=== PATIENT | female | born 1990 | race Caucasian/White ===

== ENCOUNTER 2016-10-25 17:02 | Emergency (ER) | payer OTHER ==
--- NOTE | 2016-10-25 20:23 | ED ORDER SUMMARY ---
..... Patient: IVAN CORTEZ OrderSheet [facility] VisitID: [id number] [address] [place], [place] [id number] 26y, F Registration Date/Time: 10/25/2016 ORDER SHEET Weight: 56.2 kg (stated) Allergies: No Known Drug Allergy GENERAL ORDERS: Chest 2V Urgent (17:57 10/25/2016 EKoroleva P.A.-C) (Ack 18:06 RKaruga) (18:33 SReitz R.N.) CBC w Diff Urgent (17:57 10/25/2016 EKoroleva P.A.-C) (Ack 18:06 RKaruga) (18:33 SReitz R.N.) CMP Urgent (17:57 10/25/2016 EKoroleva P.A.-C) (Ack 18:06 RKaruga) (18:33 SReitz R.N.) UA-Culture if indicated Urgent (17:57 10/25/2016 EKoroleva P.A.-C) (Ack 18:06 RKaruga) (18:33 SReitz R.N.) Urine Urgent (17:57 10/25/2016 EKoroleva P.A.-C) (Ack 18:06 RKaruga) (18:33 SReitz R.N.) Urine Drug Screen Urgent (17:57 10/25/2016 EKoroleva P.A.-C) (Ack 18:06 RKaruga) (18:33 SReitz R.N.) EKG - ER Stat (17:57 10/25/2016 EKoroleva P.A.-C) (17:57 SReitz R.N.) US Abdomen Limited (No) Urgent (18:25 10/25/2016 EKoroleva P.A.-C) (Ack 18:31 RKaruga) (20:14 JDeElena R.N.) Lipase Urgent (18:25 10/25/2016 EKoroleva P.A.-C) (Ack 18:31 RKaruga) (18:33 SReitz R.N.) Serum Quantitative Urgent (18:25 10/25/2016 EKoroleva P.A.-C) (Ack 18:31 Cody) (18:35 Jeremy R.N.) MEDICATION ORDERS: Augmentin PO 875 mg (NOW) (20:08 10/25/2016 EKoroleva P.A.-C) (Cancelled: Other20:08 EKoroleva P.A.-C) IV FLUIDS: IV NS : initial bolus 1000 mL (1000 mL/hr), then 1000 mL/hr for X1 (NOW); Alonzo (17:57 10/25/2016 EKoroleva P.A.-C) (18:00 Jeremy R.N.) Rocephin IV 2 gm/50mL (NOW) (20:07 10/25/2016 EKoroleva P.A.-C) (Ack 20:07 Louis R.N.) (20:12 Louis R.N.) ORDER SHEET NOTES: [Electronically signed by Chris Cortez R.N. (20:52 10/25/2016)] [Electronically signed by Gabi Lowery P.A.-C (21:29 10/25/2016)] [Electronically locked/signed by Chris Cortez R.N. (20:52 10/25/2016)]
--- NOTE | 2016-10-25 20:23 | ED NURSING NOTES ---
Clinical Report - [facility] [address] [place] [address] 10/25/2016 17:03 Patient: ESTELITA CORTEZ TRIAGE Triage time 17:17. Acuity: LEVEL 3. Chief Complaint: DIZZINESS and (syncope). Alert. No acute distress. SEPSIS SCREEN: Sepsis Screen. Negative (no infection suspected/documented). ODESSA COMA SCORE: [place] Coma Scale: 15- eyes open spontaneously (4); best verbal response- oriented x 4 (5); best motor response- obeys commands (6). --17:27 Preeti Mesa R.N. 17:17 10/25/16. BP: 118/74. HR: 80. RR: 16. O2 saturation: 100%. Temp: 98.4 F. Pain level now 0/10. --17:27 Preeti Mesa R.N. 17:17. ( BP lyin/74 HR 80, BP standin/80 HR 82). --17:33 Preeti Mesa R.N. Weight: 56.2 kg stated. Height/Length: 63 inches Per Patient. BMI: 22. --17:19 Preeti Mesa R.N. Medications Control Pills. --17:22 Preeti Mesa R.N. Allergies No Known Drug Allergy. --17:22 Preeti Mesa R.N. History Arrived by private vehicle. Historian: patient. Accompanied by friend. Primary physician (Luly). This started 1 week ago started feeling dizzy then 3 days ago had a "blackout" episode. 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 PAST MEDICAL HX: Immunizations: up-to-date. Last normal menstrual period- Sep 26 2016. SOCIAL HX: Light tobacco smoker (cigarette)- less than 1/2 a pack per day. Occasional alcohol use. History of IV drug use: methamphetamines. (lasted used x1 month ago). ABUSE ASSESSMENT: Abuse assessment: The patient was asked "Do you feel safe in your home?" and "Has anyone hurt you or threatened to hurt you?". No report of abuse. NUTRITIONAL RISK ASSESSMENT: The nutritional risk assessment revealed no deficiencies. FUNCTIONAL ASSESSMENT: Functional assessment: no impairments noted. LEARNING NEEDS ASSESSMENT: The learning needs assessment revealed no barriers. --17:27 Preeti Mesa R.N. PROBLEMS: Carpal Tunnel Syndrome. Hep c. Substance Abuse. Neck Injury. --17:23 Preeti Mesa R.N. Interventions ID band on patient. Ambulatory. --17:27 Preeti Mesa R.N. PHYSICAL ASSESSMENT Ambulatory to room. GENERAL / NEURO / PSYCH: Oriented X 4. Appears in no acute distress. Alert. Speech within normal limits. RESPIRATORY: Respirations not labored. CVS: Capillary refill less than 2 seconds. SKIN: Skin is warm and dry. --17:27 Preeti Mesa R.N. NURSING PROGRESS NOTES local operator, pulse oximeter and NIBP monitor placed on patient; cardiac cath rn- Lead II; monitor alarms on. Patient gowned. Head of bed elevated. Two patient identifiers checked. Call light placed in reach. Side rails up x 2. Bed placed in lowest position. Brakes of bed on. Patient ready for evaluation- chart flagged. --17:28 Preeti Mesa R.N. EKG time: (1738). EKG was ordered, performed by a nurse and shown to the ED physician. --17:37 Preeti Mesa R.N. 17:45 10/25/2016 Site #1 started via IV in the left antecubital space with an 20g angiocath, with aseptic technique and good blood return; one attempt. Blood drawn: rainbow set. Labeled in the presence of the patient and sent to the lab. Saline lock flushed with 10 mL saline. --17:45 Preeti Mesa R.N. 17:50 10/25/2016 Started bag #1 1000 mL IV Fluids IV NS (Saline); at 1000 mL/hr over 1 hour(s) via site #1 via IV pump. Allergies verified and confirmed 5 rights. IV patency established. IV site checked: no pain, redness, or swelling. IV flushed thoroughly pre- and post-medication administration. --18:00 Preeti Mesa R.N. 18:33. Urine test negative. control panel assembler check passed. --18:36 Preeti Mesa R.N. Patient transported to radiology by stretcher with tech. --18:36 Preeti Mesa R.N. Care transferred and report given (to ORAL Perez). --19:19 Preeti Mesa R.N. 19:33 10/25/16. BP: 111/72 (regular adult cuff) taken on the right arm, via an automated monitor, while lying. HR: 72 (regular and normal rate). RR: 18 (regular, unlabored and normal). O2 saturation: 100% on room air. Temp: 98.1 F (oral). Pain level now: 0/10. --19:38 Chris Cortez R.N. GENERAL / NEURO / PSYCH: Patient is calm and cooperative. Affect appears normal. Alert. Oriented X 4. [place] Coma Scale: 15- eyes open spontaneously (4); best verbal response- oriented x 4 (5); best motor response- obeys commands (6). RESPIRATORY: No respiratory distress. No respiratory distress. Respirations not labored. Breath sounds normal. CVS: Normal sinus rhythm noted. GI / : Abdomen soft and nontender. ( No hepatosplenomegaly.). SKIN: Skin is warm and dry. Two patient identifiers checked. Call light placed in reach. Side rails up x 2. Bed placed in lowest position. Brakes of bed on. Care transferred and report received (ORAL Álvarez). Patient waiting for diagnostic study to be done (Ultrasound). --19:38 Chris Cortez R.N. 19:39 10/25/2016 IV Fluids IV NS Discontinued: bag #1 completed upon discharge. Total amount infused: 1000 mL. IV patency established. IV site checked: no pain, redness, or swelling. IV flushed thoroughly. --19:39 Chris Cortez R.N. 20:12 10/25/2016 Started 2 gm of Rocephin (CefTRIAXone Sodium) IVPB in bag #1 50 mL; at 100 mL/hr over 20 minute(s) via site #1; Allergies verified and confirmed 5 rights. IV patency established. IV site checked: no pain, redness, or swelling. IV flushed thoroughly pre- and post-medication administration. Completed per protocol. --20:12 Chris Cortez R.N. The patient is calm and resting quietly. GENERAL / NEURO / PSYCH: Patient is calm and cooperative. Alert. Oriented X 4. RESPIRATORY: No respiratory distress. CVS: Normal sinus rhythm noted. SKIN: Skin is warm and dry. --20:13 Chris Cortez R.N. 20:12 10/25/16. BP: 91/53 (regular adult cuff) taken on the right arm, via an automated monitor, while lying. HR: 76 (regular and normal rate). RR: 20 (regular, unlabored and normal). O2 saturation: 100% on room air. --20:13 Chris Cortez R.N. DISPOSITION / DISCHARGE Departure time: 20:51. Condition at departure: stable. The goals identified in the patient's plan of care were met. No learning barriers present. Discharge instructions provided and reviewed with the patient. Reviewed medication(s) side effects, precautions, dosing and course information. Prescription(s) given to the patient (Estelita verbalizes importance of finishing all prescribed antibiotics.). Patient verbalized understanding. Written instructions provided in [place] Verde[place]. ( Estelita verbalizes understanding of all d/c instructions including need to f/u with PCP. She has no questions and voices no concerns at this time.). The patient was discharged by the physician. She was discharged home and accompanied by family. She left the Emergency Department ambulatory and via private vehicle. Family member driving. ODESSA COMA SCORE: [place] Coma Scale: 15- eyes open spontaneously (4); best verbal response- oriented x 4 (5); best motor response- obeys commands (6). --20:51 Chris Cortez R.N. 20:49 10/25/16. BP: 114/74 (regular adult cuff) taken on the left arm, via an automated monitor, while lying. HR: 80 (normal rate). RR: 14 (regular, unlabored and normal). O2 saturation: 98% on room air. Temp: 98.1 F (oral). Pain level now: 0/10. --20:51 Chris Cortez R.N. 20:51 10/25/2016 Site #1 removed upon discharge. Catheter intact. Bandaid applied. --20:51 Chris Cortez R.N. Locked/Released at 10/25/2016 20:52 by Chris Cortez R.N.
--- NOTE | 2016-10-25 20:23 | ED CLINICAL REPORT ---
Clinical Report - Physicians/Mid Levels [facility] [address] [place] [address] 10/25/2016 17:03 Patient: IVAN CORTEZ Time Seen: 21:09 Oct 25 2016. Arrived- By private vehicle. Historian- patient. HISTORY OF PRESENT ILLNESS Is no longer unconscious. She has recovered. Chief Complaint: SYNCOPE. This occurred 3 days SPRING ENCASER. Event was witnessed. At time of event, she was standing. The patient had preceding symptoms of light-headedness, nausea, dim vision and warmth. The patient felt faint (2 days prior). No seizure activity or incontinence. Had a single episode. (Reports sx of diziness on wednesday while walking, and near syncope vs syncope while walking dog w mom. Reports mom let her to sit down and patient reports being out of it for a few mins. Since such, has had weakness since, diziness, sensation of room spinning with standing. late on her menses. Reports no drug use in 1 month.). REVIEW OF SYSTEMS No headache, dizziness, abdominal pain or sore throat. All systems otherwise negative, except as recorded above. PAST HISTORY Problems: Carpal Tunnel Syndrome. Hep c. Substance Abuse. Neck Injury. Medications: Control Pills. Allergies: No Known Drug Allergy. SOCIAL HISTORY Smoker- current status unknown. Alcohol use. History of IV drug use: methamphetamines. ADDITIONAL NOTES The nursing notes have been reviewed. PHYSICAL EXAM Vital Signs: 10/25/2016 17:17 BP: 118/74. HR: 80. RR: 16. O2 saturation: 100%. Temp: 98.4 F. Appearance: Alert. Eyes: Pupils equal, round and reactive to light. No nystagmus. No nystagmus. No abnormal funduscopic findings. ENT: Moist mucous membranes. Neck: Normal inspection. CVS: Normal heart rate and rhythm. Heart sounds normal. Respiratory: No respiratory distress. No decreased air movement. Abdomen: Soft. No abdominal tenderness or organomegaly. Back: Normal inspection. No CVA tenderness. Neuro: Alert. Oriented X 3. Cranial nerves normal (as tested). No motor deficit. No sensory deficit. LABS, X-RAYS, AND EKG EKG: EKG time: (1738). No acute process. No acute ischemia. Rate: 70. Normal P waves. Normal [place]. Normal QRS complex. Normal axis. Normal ST and T waves and QT. The study has been interpreted contemporaneously. The EKG appears to be a good tracing. Chest X-ray: (IMPRESSION: 1. No acute changes 2. Dextroscoliosis Electronically Final signed by:Marc Jacques MD 10/25/2016 8:59:23 PM). Laboratory Tests: UA-Culture if indicated: (RILEY: 10/25/2016 18:25) ( [facility] 10/25/2016 18:59) Final results Test Result Flag Units (Reference) URINE COLOR YELLOW URINE APPEARANCE CLEAR URINE GLUCOSE NEGATIVE (NEGATIVE) URINE BILIRUBIN NEGATIVE (NEGATIVE) URINE KETONE NEGATIVE (NEGATIVE) URINE SPECIFIC GRAVITY 1.025 (1.010-1.030) URINE PH 6.0 (5.0-8.0) URINE PROTEIN NEGATIVE (NEGATIVE) URINE UROBILINOGEN 0.2 EU/dL (0.2-1.0) URINE NITRITE NEGATIVE (NEGATIVE) URINE BLOOD NEGATIVE (NEGATIVE) URINE LEUK ESTERASE NEGATIVE (NEGATIVE) URINE RBC NONE SEEN rbc/hpf (0-1) URINE WBC 1-3 wbc/hpf (0-1) URINE EPITHELIAL CELLS 3-5 EPI/hpf (0-5) URINE BACTERIA MANY (4+) (NONE SEEN) URINE COMMENT CULTURE INDICATED URINE CULTURES ARE SET-UP BASED ON THE FOLLOWING CRITERIA:POSITIVE NITRITEPOSITIVE LEUKOCYTE ESTERASEGREATER THAN 10 WHITE BLOOD CELLSMODERATE (2+) OR GREATER BACTERIA Urine: (RILEY: 10/25/2016 18:25) ( [facility] 10/25/2016 18:52) Final results Test Result Flag Units (Reference) URINE NEGATIVE CBC w Diff: (RILEY: 10/25/2016 17:45) ( [facility] 10/25/[place] 18:11) Final results Test Result Flag Units (Reference) WHITE BLOOD COUNT 5.8 K/uL (4.5-11.5) RED BLOOD COUNT 3.86 L M/uL (4.00-5.20) HEMOGLOBIN 12.1 gm/dL (12.0-16.0) HEMATOCRIT 35.9 L % (36.0-46.0) MEAN CELL VOLUME 93 fL (80-100) MEAN CORPUSCULAR HGB 31 pg (26-34) MEAN CORPUSCULAR HGB CONC 34 g/dL (31-37) RED CELL DISTRIBUTION WIDTH 13.4 % (11.6-14.8) PLATELET COUNT 232 K/uL (150-400) NEUTROPHIL % 51.6 % (50-75) LYMPH % 38.1 % (25-40) MONO % 8.8 % (3-14) EOSINOPHIL % 0.6 % (0-4) BASOPHIL % 0.9 % (0-2) Serum Quantitative: (RILEY: 10/25/2016 17:45) ( [facility] 10/25/2016 19:08) Final results Test Result Flag Units (Reference) BETA HCG, QUANTITATIVE <1 mIU/mL REFERENCE RANGE:Adult Males: <2 mIU/mLNon- Females: <6 mIU/mL Females:Approximate Approximate hCGGestational Age Range (mIU/mL) 0-1 week 0-501-2 weeks 40-3002-3 weeks 100-08400-7 weeks 500-91806-5 months 5,000-200,0002-3 months 10,000-100,0002nd trimester 3,000-50,0003rd trimester 1,000-50,000 Lipase: (RILEY: 10/25/2016 17:45) ( [facility] 10/25/2016 19:08) Final results Test Result Flag Units (Reference) LIPASE 222 U/L (73-393) Urine Drug Screen: (RILEY: 10/25/2016 18:25) ( [facility] 10/25/2016 19:07) Final results Test Result Flag Units (Reference) AMPHETAMINE/METHAMPHETAMINE NEGATIVE (NEGATIVE) BARBITURATE NEGATIVE (NEGATIVE) BENZODIAZEPINE NEGATIVE (NEGATIVE) CANNABINOID NEGATIVE (NEGATIVE) COCAINE NEGATIVE (NEGATIVE) ECSTASY NEGATIVE (NEGATIVE) METHADONE NEGATIVE (NEGATIVE) OPIATE NEGATIVE (NEGATIVE) The urine drug screen is a qualitative screening test fordrug overdose and abuse. All screen results should beconsidered as presumptive.Drugs screened for are as follows:BenzodiazepinesCocaineAmphetamines/MetamphetaminesTHC (Tetrahydrocannabinol)OpiatesBarbituratesEcstasyMethadonePositive results are unconfirmed. For confirmation, notifythe lab for the specimen to be sent to the reference lab.All confirmations must be performed by a differentmethodology.The ingestion of natural herbal and plant productscontaining Ephedra/Ephedra metabolites can produce in urineone or more substances capable of cross reacting withamphetamine/methamphetamine immunoassays. These testsprovide a preliminary result only. A more specificalternative chemical method must be used to obtain aconfirmed analytical result. CMP: (RILEY: 10/25/2016 17:45) ( [facility] 10/25/2016 18:16) Final results Test Result Flag Units (Reference) GLUCOSE 86 mg/dL (70-110) BUN 18 mg/dL (7-18) CREATININE 0.7 mg/dL (0.6-1.3) Estimated GFR >60 mL/min Estimated GFR- >60 mL/min Note: Persistent reduction over 3 months in eGFR<60 mL/min/1.73 m2 defines CKD. Patients with eGFR values>=60 mL/min/1.73 m2 may also have CKD if evidence ofpersistent proteinuria. Additional information may be foundat www.kidney.org. SODIUM 140 mmol/L (136-145) POTASSIUM 3.7 mmol/L (3.5-5.1) CHLORIDE 104 mmol/L (98-107) CARBON DIOXIDE 28 mmol/L (21-32) CALCIUM 8.9 mg/dL (8.5-10.1) TOTAL PROTEIN 7.5 g/dL (6.4-8.2) ALBUMIN 3.3 g/dL (3.3-5.0) BILIRUBIN, TOTAL 0.2 mg/dL (0.0-1.0) ALKALINE PHOSPHATASE 72 U/L (46-116) AST (SGOT) 238 H U/L (15-37) ALT (SGPT) 527 H U/L (12-78) . Note - Tests: (US abd: no signs of acute cholecystitis, cbd within limts. US: IMPRESSION: 1. Cholelithiasis. Electronically Final signed by:Marc Jacques MD 10/25/2016 9:16:20 PM). PROGRESS AND PROCEDURES Course of Care: Here in the ER patient with improvement of symptoms, rehydrated with IV fluids, patient with no ages and EKG, chest x-ray. Incident occurred more than 48 hours previously. She does have acute signs of cystitis. No signs of . Patient understands plan, need for follow-up for her near syncope event. At this time negative neuro exam. No further acute indication for her workup. Patient is stable. Symptoms better. Patient/family counseled. Disposition: Discharged. CLINICAL IMPRESSION Syncope. Cystitis. INSTRUCTIONS Drink plenty of fluids. Prescription Medications: Cephalexin 500mg: take 1 tab orally every 6 hours for 7 days. No refills OTC Medications: Take OTC medications according to label instructions. Available over the counter. Acetaminophen (available over the counter): take according to label instructions. Follow-up: Follow up with your doctor in three days. (Electronically signed by Gabi Lowery P.A.-C 10/25/2016 21:29)
--- NOTE | 2016-10-25 20:23 | ED NURSING NOTES ---
Clinical Report - Nurses [facility] [address] [place] [address] 10/25/2016 17:03 Patient: ESTELITA CORTEZ TRIAGE Triage time 17:17. Acuity: LEVEL 3. Chief Complaint: DIZZINESS and (syncope). Alert. No acute distress. SEPSIS SCREEN: Sepsis Screen. Negative (no infection suspected/documented). ODESSA COMA SCORE: [place] Coma Scale: 15- eyes open spontaneously (4); best verbal response- oriented x 4 (5); best motor response- obeys commands (6). --17:27 Preeti Mesa R.N. 17:17 10/25/16. BP: 118/74. HR: 80. RR: 16. O2 saturation: 100%. Temp: 98.4 F. Pain level now 0/10. --17:27 Preeti Mesa R.N. 17:17. ( BP lyin/74 HR 80, BP standin/80 HR 82). --17:33 Preeti Mesa R.N. Weight: 56.2 kg stated. Height/Length: 63 inches Per Patient. BMI: 22. --17:19 Preeti Mesa R.N. Medications Control Pills. --17:22 Preeti Mesa R.N. Allergies No Known Drug Allergy. --17:22 Preeti Mesa R.N. History Arrived by private vehicle. Historian: patient. Accompanied by friend. Primary physician (Luly). This started 1 week ago started feeling dizzy then 3 days ago had a "blackout" episode. Treatment SFDC DEVELOPER: None. PAST MEDICAL HX: Immunizations: up-to-date. Last normal menstrual period- Sep 26 2016. SOCIAL HX: Light tobacco smoker (cigarette)- less than 1/2 a pack per day. Occasional alcohol use. History of IV drug use: methamphetamines. (lasted used x1 month ago). ABUSE ASSESSMENT: Abuse assessment: The patient was asked "Do you feel safe in your home?" and "Has anyone hurt you or threatened to hurt you?". No report of abuse. NUTRITIONAL RISK ASSESSMENT: The nutritional risk assessment revealed no deficiencies. FUNCTIONAL ASSESSMENT: Functional assessment: no impairments noted. LEARNING NEEDS ASSESSMENT: The learning needs assessment revealed no barriers. --17:27 Preeti Mesa R.N. PROBLEMS: Carpal Tunnel Syndrome. Hep c. Substance Abuse. Neck Injury. --17:23 Preeti Mesa R.N. Interventions ID band on patient. Ambulatory. --17:27 Preeti Mesa R.N. PHYSICAL ASSESSMENT Ambulatory to room. GENERAL / NEURO / PSYCH: Oriented X 4. Appears in no acute distress. Alert. Speech within normal limits. RESPIRATORY: Respirations not labored. CVS: Capillary refill less than 2 seconds. SKIN: Skin is warm and dry. --17:27 Preeti Mesa R.N. NURSING PROGRESS NOTES kitchen clerk, pulse oximeter and NIBP monitor placed on patient; cyber software engineer- Lead II; monitor alarms on. Patient gowned. Head of bed elevated. Two patient identifiers checked. Call light placed in reach. Side rails up x 2. Bed placed in lowest position. Brakes of bed on. Patient ready for evaluation- chart flagged. --17:28 Preeti Mesa R.N. EKG time: (1738). EKG was ordered, performed by a nurse and shown to the ED physician. --17:37 Preeti Mesa R.N. 17:45 10/25/2016 Site #1 started via IV in the left antecubital space with an 20g angiocath, with aseptic technique and good blood return; one attempt. Blood drawn: rainbow set. Labeled in the presence of the patient and sent to the lab. Saline lock flushed with 10 mL saline. --17:45 Preeti Mesa R.N. 17:50 10/25/2016 Started bag #1 1000 mL IV Fluids IV NS (Saline); at 1000 mL/hr over 1 hour(s) via site #1 via IV pump. Allergies verified and confirmed 5 rights. IV patency established. IV site checked: no pain, redness, or swelling. IV flushed thoroughly pre- and post-medication administration. --18:00 Preeti Mesa R.N. 18:33. Urine test negative. control systems developer check passed. --18:36 Preeti Mesa R.N. Patient transported to radiology by stretcher with tech. --18:36 Preeti Mesa R.N. Care transferred and report given (to ORAL Perez). --19:19 Preeti Mesa R.N. 19:33 10/25/16. BP: 111/72 (regular adult cuff) taken on the right arm, via an automated monitor, while lying. HR: 72 (regular and normal rate). RR: 18 (regular, unlabored and normal). O2 saturation: 100% on room air. Temp: 98.1 F (oral). Pain level now: 0/10. --19:38 Chris Cortez R.N. GENERAL / NEURO / PSYCH: Patient is calm and cooperative. Affect appears normal. Alert. Oriented X 4. [place] Coma Scale: 15- eyes open spontaneously (4); best verbal response- oriented x 4 (5); best motor response- obeys commands (6). RESPIRATORY: No respiratory distress. No respiratory distress. Respirations not labored. Breath sounds normal. CVS: Normal sinus rhythm noted. GI / : Abdomen soft and nontender. ( No hepatosplenomegaly.). SKIN: Skin is warm and dry. Two patient identifiers checked. Call light placed in reach. Side rails up x 2. Bed placed in lowest position. Brakes of bed on. Care transferred and report received (ORAL Álvarez). Patient waiting for diagnostic study to be done (Ultrasound). --19:38 Chris Cortez R.N. 19:39 10/25/2016 IV Fluids IV NS Discontinued: bag #1 completed upon discharge. Total amount infused: 1000 mL. IV patency established. IV site checked: no pain, redness, or swelling. IV flushed thoroughly. --19:39 Chris Cortez R.N. 20:12 10/25/2016 Started 2 gm of Rocephin (CefTRIAXone Sodium) IVPB in bag #1 50 mL; at 100 mL/hr over 20 minute(s) via site #1; Allergies verified and confirmed 5 rights. IV patency established. IV site checked: no pain, redness, or swelling. IV flushed thoroughly pre- and post-medication administration. Completed per protocol. --20:12 Chris Cortez R.N. The patient is calm and resting quietly. GENERAL / NEURO / PSYCH: Patient is calm and cooperative. Alert. Oriented X 4. RESPIRATORY: No respiratory distress. CVS: Normal sinus rhythm noted. SKIN: Skin is warm and dry. --20:13 Chris Cortez R.N. 20:12 10/25/16. BP: 91/53 (regular adult cuff) taken on the right arm, via an automated monitor, while lying. HR: 76 (regular and normal rate). RR: 20 (regular, unlabored and normal). O2 saturation: 100% on room air. --20:13 Chris Cortez R.N. DISPOSITION / DISCHARGE Departure time: 20:51. Condition at departure: stable. The goals identified in the patient's plan of care were met. No learning barriers present. Discharge instructions provided and reviewed with the patient. Reviewed medication(s) side effects, precautions, dosing and course information. Prescription(s) given to the patient (Estelita verbalizes importance of finishing all prescribed antibiotics.). Patient verbalized understanding. Written instructions provided in Cuban. ( Estelita verbalizes understanding of all d/c instructions including need to f/u with PCP. She has no questions and voices no concerns at this time.). The patient was discharged by the physician. She was discharged home and accompanied by family. She left the Emergency Department ambulatory and via private vehicle. Family member driving. ODESSA COMA SCORE: [place] Coma Scale: 15- eyes open spontaneously (4); best verbal response- oriented x 4 (5); best motor response- obeys commands (6). --20:51 Chris Cortez R.N. 20:49 10/25/16. BP: 114/74 (regular adult cuff) taken on the left arm, via an automated monitor, while lying. HR: 80 (normal rate). RR: 14 (regular, unlabored and normal). O2 saturation: 98% on room air. Temp: 98.1 F (oral). Pain level now: 0/10. --20:51 Chris Cortez R.N. 20:51 10/25/2016 Site #1 removed upon discharge. Catheter intact. Bandaid applied. --20:51 Chris Cortez R.N. Locked/Released at 10/25/2016 20:52 by Chris Cortez R.N.
--- NOTE | 2016-10-25 20:23 | ED CLINICAL REPORT ---
Clinical Report - Physicians/Mid Levels [facility] [address] [place] [address] 10/25/2016 17:03 Patient: IVAN CORTEZ Time Seen: 21:09 Oct 25 2016. Arrived- By private vehicle. Historian- patient. HISTORY OF PRESENT ILLNESS Is no longer unconscious. She has recovered. Chief Complaint: SYNCOPE. 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 Event was witnessed. At time of event, she was standing. The patient had preceding symptoms of light-headedness, nausea, dim vision and warmth. The patient felt faint (2 days prior). No seizure activity or incontinence. Had a single episode. (Reports sx of diziness on wednesday while walking, and near syncope vs syncope while walking dog w mom. Reports mom let her to sit down and patient reports being out of it for a few mins. Since such, has had weakness since, diziness, sensation of room spinning with standing. late on her menses. Reports no drug use in 1 month.). REVIEW OF SYSTEMS No headache, dizziness, abdominal pain or sore throat. All systems otherwise negative, except as recorded above. PAST HISTORY Problems: Carpal Tunnel Syndrome. Hep c. Substance Abuse. Neck Injury. Medications: Control Pills. Allergies: No Known Drug Allergy. SOCIAL HISTORY Smoker- current status unknown. Alcohol use. History of IV drug use: methamphetamines. ADDITIONAL NOTES The nursing notes have been reviewed. PHYSICAL EXAM Vital Signs: 10/25/2016 17:17 BP: 118/74. HR: 80. RR: 16. O2 saturation: 100%. Temp: 98.4 F. Appearance: Alert. Eyes: Pupils equal, round and reactive to light. No nystagmus. No nystagmus. No abnormal funduscopic findings. ENT: Moist mucous membranes. Neck: Normal inspection. CVS: Normal heart rate and rhythm. Heart sounds normal. Respiratory: No respiratory distress. No decreased air movement. Abdomen: Soft. No abdominal tenderness or organomegaly. Back: Normal inspection. No CVA tenderness. Neuro: Alert. Oriented X 3. Cranial nerves normal (as tested). No motor deficit. No sensory deficit. LABS, X-RAYS, AND EKG EKG: EKG time: (1738). No acute process. No acute ischemia. Rate: 70. Normal P waves. Normal LORENA. Normal QRS complex. Normal axis. Normal ST and T waves and QT. The study has been interpreted contemporaneously. The EKG appears to be a good tracing. Chest X-ray: (IMPRESSION: 1. No acute changes 2. Dextroscoliosis Electronically Final signed by:Marc Jacques MD 10/25/2016 8:59:23 PM). Laboratory Tests: UA-Culture if indicated: (RILEY: 10/25/2016 18:25) ( [facility] 10/25/2016 18:59) Final results Test Result Flag Units (Reference) URINE COLOR YELLOW URINE APPEARANCE CLEAR URINE GLUCOSE NEGATIVE (NEGATIVE) URINE BILIRUBIN NEGATIVE (NEGATIVE) URINE KETONE NEGATIVE (NEGATIVE) URINE SPECIFIC GRAVITY 1.025 (1.010-1.030) URINE PH 6.0 (5.0-8.0) URINE PROTEIN NEGATIVE (NEGATIVE) URINE UROBILINOGEN 0.2 EU/dL (0.2-1.0) URINE NITRITE NEGATIVE (NEGATIVE) URINE BLOOD NEGATIVE (NEGATIVE) URINE LEUK ESTERASE NEGATIVE (NEGATIVE) URINE RBC NONE SEEN rbc/hpf (0-1) URINE WBC 1-3 wbc/hpf (0-1) URINE EPITHELIAL CELLS 3-5 EPI/hpf (0-5) URINE BACTERIA MANY (4+) (NONE SEEN) URINE COMMENT CULTURE INDICATED URINE CULTURES ARE SET-UP BASED ON THE FOLLOWING CRITERIA:POSITIVE NITRITEPOSITIVE LEUKOCYTE ESTERASEGREATER THAN 10 WHITE BLOOD CELLSMODERATE (2+) OR GREATER BACTERIA Urine: (RILEY: 10/25/2016 18:25) ( [facility] 10/25/2016 18:52) Final results Test Result Flag Units (Reference) URINE NEGATIVE CBC w Diff: (RILEY: 10/25/2016 17:45) ( [facility] 10/25/2016 18:11) Final results Test Result Flag Units (Reference) WHITE BLOOD COUNT 5.8 K/uL (4.5-11.5) RED BLOOD COUNT 3.86 L M/uL (4.00-5.20) HEMOGLOBIN 12.1 gm/dL (12.0-16.0) HEMATOCRIT 35.9 L % (36.0-46.0) MEAN CELL VOLUME 93 fL (80-100) MEAN CORPUSCULAR HGB 31 pg (26-34) MEAN CORPUSCULAR HGB CONC 34 g/dL (31-37) RED CELL DISTRIBUTION WIDTH 13.4 % (11.6-14.8) PLATELET COUNT 232 K/uL (150-400) NEUTROPHIL % 51.6 % (50-75) LYMPH % 38.1 % (25-40) MONO % 8.8 % (3-14) EOSINOPHIL % 0.6 % (0-4) BASOPHIL % 0.9 % (0-2) Serum Quantitative: (RILEY: 10/25/2016 17:45) ( [facility] 10/25/2016 19:08) Final results Test Result Flag Units (Reference) BETA HCG, QUANTITATIVE <1 mIU/mL REFERENCE RANGE:Adult Males: <2 mIU/mLNon- Females: <6 mIU/mL Females:Approximate Approximate hCGGestational Age Range (mIU/mL) 0-1 week 0-501-2 weeks 40-3002-3 weeks 100-54182-3 weeks 500-79880-5 months 5,000-200,0002-3 months 10,000-100,0002nd trimester 3,000-50,0003rd trimester 1,000-50,000 Lipase: (RILEY: 10/25/2016 17:45) ( [facility] 10/25/2016 19:08) Final results Test Result Flag Units (Reference) LIPASE 222 U/L (73-393) Urine Drug Screen: (RILEY: 10/25/2016 18:25) ( [facility] 10/25/2016 19:07) Final results Test Result Flag Units (Reference) AMPHETAMINE/METHAMPHETAMINE NEGATIVE (NEGATIVE) BARBITURATE NEGATIVE (NEGATIVE) BENZODIAZEPINE NEGATIVE (NEGATIVE) CANNABINOID NEGATIVE (NEGATIVE) COCAINE NEGATIVE (NEGATIVE) ECSTASY NEGATIVE (NEGATIVE) METHADONE NEGATIVE (NEGATIVE) OPIATE NEGATIVE (NEGATIVE) The urine drug screen is a qualitative screening test fordrug overdose and abuse. All screen results should beconsidered as presumptive.Drugs screened for are as follows:BenzodiazepinesCocaineAmphetamines/MetamphetaminesTHC (Tetrahydrocannabinol)OpiatesBarbituratesEcstasyMethadonePositive results are unconfirmed. For confirmation, notifythe lab for the specimen to be sent to the reference lab.All confirmations must be performed by a differentmethodology.The ingestion of natural herbal and plant productscontaining Ephedra/Ephedra metabolites can produce in urineone or more substances capable of cross reacting withamphetamine/methamphetamine immunoassays. These testsprovide a preliminary result only. A more specificalternative chemical method must be used to obtain aconfirmed analytical result. CMP: (RILEY: 10/25/2016 17:45) ( [facility] 10/25/2016 18:16) Final results Test Result Flag Units (Reference) GLUCOSE 86 mg/dL (70-110) BUN 18 mg/dL (7-18) CREATININE 0.7 mg/dL (0.6-1.3) Estimated GFR >60 mL/min Estimated GFR- >60 mL/min Note: Persistent reduction over 3 months in eGFR<60 mL/min/1.73 m2 defines CKD. Patients with eGFR values>=60 mL/min/1.73 m2 may also have CKD if evidence ofpersistent proteinuria. Additional information may be foundat www.kidney.org. SODIUM 140 mmol/L (136-145) POTASSIUM 3.7 mmol/L (3.5-5.1) CHLORIDE 104 mmol/L (98-107) CARBON DIOXIDE 28 mmol/L (21-32) CALCIUM 8.9 mg/dL (8.5-10.1) TOTAL PROTEIN 7.5 g/dL (6.4-8.2) ALBUMIN 3.3 g/dL (3.3-5.0) BILIRUBIN, TOTAL 0.2 mg/dL (0.0-1.0) ALKALINE PHOSPHATASE 72 U/L (46-116) AST (SGOT) 238 H U/L (15-37) ALT (SGPT) 527 H U/L (12-78) . Note - Tests: (US abd: no signs of acute cholecystitis, cbd within limts. US: IMPRESSION: 1. Cholelithiasis. Electronically Final signed by:Marc Jacques MD 10/25/2016 9:16:20 PM). PROGRESS AND PROCEDURES Course of Care: Here in the ER patient with improvement of symptoms, rehydrated with IV fluids, patient with no ages and EKG, chest x-ray. Incident occurred more than 48 hours previously. She does have acute signs of cystitis. No signs of . Patient understands plan, need for follow-up for her near syncope event. At this time negative neuro exam. No further acute indication for her workup. Patient is stable. Symptoms better. Patient/family counseled. Disposition: Discharged. CLINICAL IMPRESSION Syncope. Cystitis. INSTRUCTIONS Drink plenty of fluids. Prescription Medications: Cephalexin 500mg: take 1 tab orally every 6 hours for 7 days. No refills OTC Medications: Take OTC medications according to label instructions. Available over the counter. Acetaminophen (available over the counter): take according to label instructions. Follow-up: Follow up with your doctor in three days. (Electronically signed by Gabi Lowery P.A.-C 10/25/2016 21:29)
--- NOTE | 2016-10-25 20:23 | ED ORDER SUMMARY ---
..... Patient: IVAN OCRTEZ OrderSheet [facility] VisitID: [id number] [address] [place], [place] [id number] 26y, F Registration Date/Time: 10/25/2016 ORDER SHEET Weight: 56.2 kg (stated) Allergies: No Known Drug Allergy GENERAL ORDERS: Chest 2V Urgent (17:57 10/25/2016 EKoroleva P.A.-C) (Ack 18:06 RKaruga) (18:33 SReitz R.N.) CBC w Diff Urgent (17:57 10/25/2016 EKoroleva P.A.-C) (Ack 18:06 RKaruga) (18:33 SReitz R.N.) CMP Urgent (17:57 10/25/2016 EKoroleva P.A.-C) (Ack 18:06 RKaruga) (18:33 SReitz R.N.) UA-Culture if indicated Urgent (17:57 10/25/2016 EKoroleva P.A.-C) (Ack 18:06 RKaruga) (18:33 SReitz R.N.) Urine Urgent (17:57 10/25/2016 EKoroleva P.A.-C) (Ack 18:06 RKaruga) (18:33 SReitz R.N.) Urine Drug Screen Urgent (17:57 10/25/2016 EKoroleva P.A.-C) (Ack 18:06 RKaruga) (18:33 SReitz R.N.) EKG - ER Stat (17:57 10/25/2016 EKoroleva P.A.-C) (17:57 SReitz R.N.) US Abdomen Limited (No) Urgent (18:25 10/25/2016 EKoroleva P.A.-C) (Ack 18:31 RKaruga) (20:14 JDeElena R.N.) Lipase Urgent (18:25 10/25/2016 EKoroleva P.A.-C) (Ack 18:31 RKaruga) (18:33 SReitz R.N.) Serum Quantitative Urgent (18:25 10/25/2016 EKoroleva P.A.-C) (Ack 18:31 Cody) (18:35 Jeremy R.N.) MEDICATION ORDERS: Augmentin PO 875 mg (NOW) (20:08 10/25/2016 EKoroleva P.A.-C) (Cancelled: Other20:08 EKoroleva P.A.-C) IV FLUIDS: IV NS : initial bolus 1000 mL (1000 mL/hr), then 1000 mL/hr for X1 (NOW); Alonzo (17:57 10/25/2016 EKoroleva P.A.-C) (18:00 Jeremy R.N.) Rocephin IV 2 gm/50mL (NOW) (20:07 10/25/2016 EKoroleva P.A.-C) (Ack 20:07 Louis R.N.) (20:12 Louis R.N.) ORDER SHEET NOTES: [Electronically signed by Chris Cortez R.N. (20:52 10/25/2016)] [Electronically signed by Gabi Lowery P.A.-C (21:29 10/25/2016)] [Electronically locked/signed by Chris Cortez R.N. (20:52 10/25/2016)]
--- NOTE | 2016-10-25 20:59 | DIAGNOSTIC IMAGING REPORT ---
PROCEDURE: XR CHEST 2 VIEW INDICATION: CHEST PAIN TECHNIQUE: PA and lateral view. COMPARISON: None. FINDINGS: Lungs are clear. Cardiovascular structures are normal. 51 degree dextroconvex scoliosis. IMPRESSION: 1. No acute changes 2. Dextroscoliosis
--- NOTE | 2016-10-25 21:16 | DIAGNOSTIC IMAGING REPORT ---
PROCEDURE: US ABDOMEN ULTRASOUND-LIMITED INDICATION: ABNORMAL LFT TECHNIQUE: Lassiter scale and color Doppler sonographic images of the abdomen were obtained. COMPARISON: None. FINDINGS: 1.2 cm mobile gallstone but no gallbladder wall thickening or pericholecystic fluid. Normal CBD measures 3.2 mm. Negative Manzo's sign. Normal liver and pancreas. Aorta and IVC are patent. Normal hepatopetal flow. Normal right kidney measures 11.7 cm. IMPRESSION: 1. Cholelithiasis.
--- NOTE | 2016-10-25 21:29 | ED MED RECONCILIATION SUMMARY ---
Patient: IVAN CORTEZ Medication Reconciliation Report [facility] VisitID: [id number] [address] [place] [address] 26y, F Registration Date/Time: 10/25/2016 Weight: 56.2 kg Height/Length: 63 in. BMI: 22.0 ALLERGIES: No Known Drug Allergy The patient's Home Medications are listed below: THE FOLLOWING MEDICATIONS NEED TO BE RECONCILED: Control Pills The source(s) of the original Home Medication information: Not obtained. The following Medications were given to the patient in the Emergency Department: IV NS IV Fluids bolus 0, then 1000 mL/hr, administered: 10/25/2016 5:50:00 PM Rocephin [IVPB] IVPB bolus 0, then 2 gm 100 mL/hr, administered: 10/25/2016 8:12:00 PM The following Medications were prescribed to the patient: Take OTC medications according to label instructions. Available over the counter. -- Gabi Lowery, P.A.-C Acetaminophen (available over the counter): take according to label instructions. -- Gabi Lowery, P.A.-C Cephalexin 500mg: take 1 tab orally every 6 hours for 7 days. No refills -- Gabi Lowery, P.A.-C
--- NOTE | 2016-10-25 21:29 | ED MAR SUMMARY ---
..... Medication Administration Record [facility] [address] [place] [address] Patient: IVAN CORTEZ Visit ID: [id number] 26y, F Weight: 56.2 kg Height/Length: 63 in BMI: 22 ALLERGIES: No Known Drug Allergy Start 17:50 10/25/2016 Preeti Mesa RRobertNRobert, Stop 19:39 10/25/2016 Chris Cortez R.N. Medication Administered: IV NS (SALINE), Dose: IV Fluids over 1 hour(s), Rate: 1000 mL/hr, Dispensed: 1000 mL bag, Site: #1 left AC. Medication Ordered: IV NS : initial bolus 1000 mL (1000 mL/hr), then 1000 mL/hr for X1 (NOW); Alonzo. Start 20:12 10/25/2016 Chris Cortez RRobertNRobert Medication Administered: ROCEPHIN [IVPB] (CEFTRIAXONE SODIUM), Dose: 2 gm IVPB over 20 minute(s), Rate: 100 mL/hr, Dispensed: 50 mL bag, Site: #1 left AC. Medication Ordered: Rocephin IV 2 gm/50mL (NOW).
--- NOTE | 2016-10-25 21:29 | ED MED RECONCILIATION SUMMARY ---
Patient: IVAN CORTEZ Medication Reconciliation Report [facility] VisitID: [id number] [address] [place] [address] 26y, F Registration Date/Time: 10/25/2016 Weight: 56.2 kg Height/Length: 63 in. BMI: 22.0 ALLERGIES: No Known Drug Allergy The patient's Home Medications are listed below: THE FOLLOWING MEDICATIONS NEED TO BE RECONCILED: Control Pills The source(s) of the original Home Medication information: Not obtained. The following Medications were given to the patient in the Emergency Department: IV NS IV Fluids bolus 0, then 1000 mL/hr, administered: 10/25/2016 5:50:00 PM Rocephin [IVPB] IVPB bolus 0, then 2 gm 100 mL/hr, administered: 10/25/2016 8:12:00 PM The following Medications were prescribed to the patient: Take OTC medications according to label instructions. Available over the counter. -- Gabi Lowery, P.A.-C Acetaminophen (available over the counter): take according to label instructions. -- Gabi Lowery, P.A.-C Cephalexin 500mg: take 1 tab orally every 6 hours for 7 days. No refills -- Gabi Lowery, P.A.-C
--- NOTE | 2016-10-25 21:29 | ED MAR SUMMARY ---
..... Medication Administration Record [facility] [address] [place] [address] Patient: IVAN CORTEZ Visit ID: [id number] 26y, F Weight: 56.2 kg Height/Length: 63 in BMI: 22 ALLERGIES: No Known Drug Allergy Start 17:50 10/25/2016 Preeti Mesa RRobertNRobert, Stop 19:39 10/25/2016 Chris Cortez R.N. Medication Administered: IV NS (SALINE), Dose: IV Fluids over 1 hour(s), Rate: 1000 mL/hr, Dispensed: 1000 mL bag, Site: #1 left AC. Medication Ordered: IV NS : initial bolus 1000 mL (1000 mL/hr), then 1000 mL/hr for X1 (NOW); Alonzo. Start 20:12 10/25/2016 Chris Cortez RRobertNRobert Medication Administered: ROCEPHIN [IVPB] (CEFTRIAXONE SODIUM), Dose: 2 gm IVPB over 20 minute(s), Rate: 100 mL/hr, Dispensed: 50 mL bag, Site: #1 left AC. Medication Ordered: Rocephin IV 2 gm/50mL (NOW).
--- NOTE | 2016-10-25 21:29 | ED DISCHARGE INSTRUCTIONS ---
Patient: IVAN CORTEZ General Instructions [facility] VisitID: [id number] [place] [address] 26y, F Registration Date/Time: 10/25/2016 Syncope. Cystitis. INSTRUCTIONS Drink plenty of fluids. Prescription Medications: Cephalexin 500mg: take 1 tab orally every 6 hours for 7 days. No refills OTC Medications: Take OTC medications according to label instructions. Available over the counter. Acetaminophen (available over the counter): take according to label instructions. Follow-up: Follow up with your doctor in three days. ADDITIONAL INFORMATION Bladder Infection,Female (Adult) A bladder infection ("cystitis" or "UTI") usually causes a constant urge to urinate and a burning when passing urine. Urine may be cloudy, smelly or dark. There may be pain in the lower abdomen. A bladder infection occurs when bacteria from the vaginal area enter the bladder opening (urethra). This can occur from sexual intercourse, wearing tight clothing, dehydration and other factors. Home Care: Drink lots of fluids (at least 6-8 glasses a day, unless you must restrict fluids for other medical reasons). This will force the medicine into your urinary system and flush the bacteria out of your body. Avoid sexual intercourse until your symptoms are gone. Avoid caffeine, alcohol and spicy foods. These can irritate the bladder. A bladder infection is treated with antibiotics. You may also be given Pyridium (generic = phenazopyridine) to reduce the burning sensation. This medicine will cause your urine to become a bright orange color. The orange urine may stain clothing. You may wear a pad or panty-liner to protect clothing. Preventing Future Infections: Always wipe from front to back after a bowel movement. Keep the genital area clean and dry. Drink plenty of fluids each day to avoid dehydration. Both sexual partners should wash before intercourse. Urinate right after intercourse to flush out the bladder. Wear cotton underwear and cotton-lined panty hose; avoid tight-fitting pants. If you are on control pills and are having frequent bladder infections, discuss with your doctor. Follow Up: Return to this facility or see your doctor if ALL symptoms are not gone after three days of treatment. Get Prompt Medical Attention if any of the following occur: Fever of 100.4F (38C) or higher, or as directed by your healthcare provider No improvement by the third day of treatment Increasing back or abdominal pain Repeated vomiting; unable to keep medicine down Weakness, dizziness or fainting Vaginal discharge Pain, redness or swelling in the labia (outer vaginal area) Fainting:Uncertain Cause Fainting (syncope) is a temporary loss of consciousness ("passing out"). It occurs when blood flow to the brain is reduced. Near-fainting ("near-syncope") is very similar to fainting, but you do not fully "pass out". The common minor causes of fainting include: sudden fear, pain, nausea, emotional stress and overexertion. Suddenly standing up after sitting or lying for a long time can also cause fainting. The more serious causes for fainting are due to either a very slow or very fast or very slow heart beat ("arrhythmia"), other types of heart disease, dehydration, blood loss, seizure, stroke or ruptured blood vessel in the brain. Taking too much high blood pressure medicine can also cause low blood pressure and fainting. The exact cause of your episode is not certain. However, the tests today did not show any of the serious causes of fainting. Sometimes further testing is needed to find out if a serious problem exists. Therefore, it is important that you follow-up with your doctor as advised. Home Care: 1) Rest today. You may resume your normal activities when you are feeling back to normal. It is best to remain with someone who can check on you for the next 24 hours to watch for another episode of fainting. 2) If you become light-headed or dizzy, lie down immediately or sit with your head between your knees. 3) Because we do not know the exact cause of your near fainting spell, it is possible for another spell to occur without warning. Therefore, do not drive a car or operate dangerous equipment, do not take a bath alone (use a shower instead) and do not swim alone until your doctor says that you are no longer in danger of having another fainting spell. Follow Up with your doctor as advised. Get Prompt Medical Attention if any of the following occur: -- Another fainting spell occurs, which is not explained by the common causes listed above -- Chest, arm, neck, jaw, back or abdominal pain -- Shortness of breath -- Severe headache or seizure -- Blood in vomit, stools (black or red color) -- Unexpected vaginal bleeding -- Palpitations (very rapid or very slow or irregular heart beat) -- Signs of stroke: Weakness of an arm or leg or one side of the face Difficulty with speech or vision Extreme drowsiness, confusion, dizziness or fainting You have been given the following additional information: Bladder Infection, Female (Adult) Syncope, Unk Cause (Electronically signed by Gabi Lowery P.A.-C 10/25/2016 21:29)
== END 2016-10-25 20:51 | disposition home or self-care (01) ==
LOC: ED SRH 17:02
DX: N30.90 Cystitis, unspecified without hematuria (principal); R55 Syncope and collapse; F17.210 Nicotine dependence, cigarettes, uncomplicated; Z79.3 Long term (current) use of hormonal contraceptives
CPT/HCPCS: 90004; 90100; 90148; 90197; 90469; 92235; 92760; 92761; 92762; 92763; 92764; 92765; 92766; 92767; 93070; 95059

== ENCOUNTER 2016-10-30 14:50 | Emergency (ER) | payer OTHER ==
--- NOTE | 2016-10-30 16:00 | ED NURSING NOTES ---
Clinical Report - Nurses [facility] [address] [place] [address] 10/30/2016 14:51 Patient: IVAN CORTEZ TRIAGE Triage time 15:Oct 30 2016. Acuity: LEVEL 4. Alert. No acute distress. --15:09 Rosa Oro R.N. 15:05 10/30/16. BP: 118/73. HR: 94. RR: 18. O2 saturation: 100%. Temp: 98.2 F. Pain level now 6/10. --15:09 Rosa Oro R.N. Chief Complaint: VAGINAL DISCHARGE. --16:17 Rosa Oro R.N. Weight: 58.9 kg estimated. Height/Length: 66 inches Estimated. BMI: 21. --15:04 Rosa Oro R.N. Medications Control Pills. --15:05 Rosa Oro R.N. Cephalexin Oral. --15:05 Rosa Oro R.N. Medication/allergy information source: the patient. --15:09 Rosa Oro R.N. Allergies No Known Drug Allergy. --15:05 Rosa Oro R.N. History Arrived by private vehicle. Historian: patient. Primary physician (Lynette). ( States she is on Cephalhexin and thinks she may have gotten a yeast infection or maybe an STD. Yeast and itching. Labia swollen. Recently TX for a UTI here on Wednesday. New partner a few weeks ago.). This started yesterday. 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 PAST MEDICAL HX: Last normal menstrual period- end of September. Denies current . SOCIAL HX: Light tobacco smoker (cigarette)- less than 1/2 a pack per day. Alcohol use. History of drug use: marijuana. NUTRITIONAL RISK ASSESSMENT: The nutritional risk assessment revealed no deficiencies. FUNCTIONAL ASSESSMENT: Functional assessment: no impairments noted. LEARNING NEEDS ASSESSMENT: The learning needs assessment revealed no barriers. SKIN INTEGRITY ASSESSMENT: Skin integrity risk assessment completed. No skin integrity risk identified. --15:09 Rosa Oro R.N. PROBLEMS: Cystitis. Syncope. Carpal Tunnel Syndrome. Hep c. Substance Abuse. Neck Injury. --15:05 Rosa Oro R.N. Interventions ID band on patient. To room. --15:09 Rosa Oro R.N. PHYSICAL ASSESSMENT Ambulatory to room. GENERAL / NEURO / PSYCH: Alert. Oriented X 4. Appears in no acute distress. RESPIRATORY: Respirations not labored. CVS: Capillary refill less than 2 seconds. SKIN: Skin is warm and dry. --16:13 Rosa Oro R.N. GI / : ( no visualized by RN, GOVERNMENT MINISTER only during pelvic exam). --16:14 Rosa Oro R.N. NURSING PROGRESS NOTES PELVIC EXAM: Pelvic exam performed by GOVERNMENT MINISTER. Assisted by one nurse. Preparation: pelvic tray. Procedure: speculum exam. Moderate amount of vaginal discharge noted. Specimens collected and sent to lab: GC, chlamydia and wet prep. Status post-procedure: she was stable. Total time of assist / procedure: 15 minutes. --15:34 Rosa Oro R.N. ( discussed probiotics and or colombian yogurt, minimal sugar). --16:15 Rosa Oro R.N. DISPOSITION / DISCHARGE Departure time: 16:16 Oct 30 2016. --16:16 Rosa Oro R.N. Condition at departure: improved and stable. No learning barriers present. Patient verbalized understanding. Written instructions provided in Polish. The patient was discharged by the nurse practitioner. She was discharged home and accompanied by family. She left the Emergency Department ambulatory and via private vehicle. Family member driving. --16:16 Rosa Oro R.N. Locked/Released at 10/30/2016 16:17 by Rosa Oro R.N.
--- NOTE | 2016-10-30 16:00 | ED ORDER SUMMARY ---
..... Patient: IVAN CORTEZ OrderSheet [facility] VisitID: [id number] [place] [address] 26y, F Registration Date/Time: 10/30/2016 ORDER SHEET Weight: 58.9 kg (estimated) Allergies: No Known Drug Allergy GENERAL ORDERS: Pelvic Exam Setup (15:21 10/30/2016 HBivens A.R.N.P.) (15:22 Cristi R.N.) GC/Chlamydia (Cervix) (cervix) Urgent (15:30 10/30/2016 HBivens A.R.N.P.) (Ack 15:37 OHsierra) Wet Prep (Cervix) (cervix) Urgent (15:30 10/30/2016 HBivens A.R.N.P.) (Ack 15:37 Lexy) MEDICATION ORDERS: IV FLUIDS: ORDER SHEET NOTES: [Electronically signed by Rosa Oro R.N. (16:17 10/30/2016)] [Electronically signed by Chaya OneilR.N.PRobert (18:37 10/30/2016)] [Electronically locked/signed by Rosa Oro R.N. (16:17 10/30/2016)]
--- NOTE | 2016-10-30 16:00 | ED CLINICAL REPORT ---
Clinical Report - Physicians/Mid Levels [facility] [address] [place] [address] 10/30/2016 14:51 Patient: IVAN CORTEZ Time Seen: 15:13; initial patient contact, initial documentation, patient care assumed. Arrived- By private vehicle. Historian- patient. RETURN VISIT: recently seen in this ED by another ED physician. Seen now for a new unrelated complaint. HISTORY OF PRESENT ILLNESS Chief Complaint: VAGINAL DISCHARGE. This started yesterday and still present. The symptoms are described as moderate. Modifying factors. Not worsened by anything. Not relieved by anything. The patient has had vaginal pain. She has had a moderate amount of yellow, green, itchy, burning vaginal discharge . The patient believes the discharge to be a yeast infection. There is no prior history of pelvic inflammatory disease or exposure to venereal disease. No abdominal pain, pelvic pain, low back pain, flank pain or pain with urination. No urinary frequency, urgency of urination or hematuria. Sexually active- unprotected sex and heterosexual. The patient has had possible exposure to sexually transmitted disease (new partner a few weeks ago). (not sure if she got std from new partner, or the abx she started taking for her uti, gave her yeast infection). Denies current . Similar symptoms previously: Once, worse. ( had gonorrhea). Recent medical care: The patient was seen recently at this facility in the emergency department. ( txed here 10/25, dx with syncope and cystitis, rx keflex). REVIEW OF SYSTEMS The patient has had nausea. She has had vomiting and diarrhea. All systems otherwise negative, except as recorded above. PAST HISTORY See nurses notes. ( PROBLEMS: Cystitis. Syncope. Carpal Tunnel Syndrome. Hep c. Substance Abuse. Neck Injury. --15:05 Rosa Oro R.N.). SOCIAL HISTORY Light tobacco smoker. Occasional alcohol use. History of occasional drug use: marijuana. No recent travel. Is a local resident. FAMILY HISTORY Negative. ADDITIONAL NOTES The nursing notes have been reviewed with agreement regarding the chief complaint, HPI, ROS, PMH and patient medications and allergies. PHYSICAL EXAM Vital Signs: 10/30/2016 15:05 BP: 118/73. HR: 94. RR: 18. O2 saturation: 100%. Temp: 98.2 F. Have been reviewed as normal and appear to be correct. Appearance: Alert. Oriented X3. No acute distress. HEENT: Normal external inspection. ENT: Pharynx normal. Neck: Neck supple. CVS: Heart sounds normal. Respiratory: No respiratory distress. Breath sounds normal. Chest nontender. Abdomen: Soft and nontender. Bowel sounds normal. No organomegaly. No mass. Back: Normal external inspection. : External inspection normal. Speculum exam abnormal. A scant amount of thin and yellow vaginal discharge present. No vaginal bleeding. Cervical os closed. No tissue present. No cervicitis. No herpes-like lesions. Bimanual exam normal. Skin: Skin warm and dry. Normal skin color. No rash. Normal skin turgor. Extremities: Extremities nontender. No lower extremity edema. Neuro: Oriented X 3. Mood/affect normal. No motor deficit. No sensory deficit. LABS, X-RAYS, AND EKG Laboratory Tests: Wet Prep: (RILEY: 10/30/2016 15:30) ( MsgRcvd 10/30/2016 15:47) Final results SPECIMEN DESCRIPTION: CERVIX Test Result Flag Units (Reference) WET MOUNT CLUE CELLS:: MODERATE * EPITHELIAL CELLS: MODERATE -- SOURCE?: CERVIX WHITE BLOOD CELLS: FEW TRICHOMONAS:: NONE -- YEAST:: NONE . PROGRESS AND PROCEDURES Patient counseled in person regarding the patient's stable condition, test results and diagnosis. 15:59. Differential Diagnosis: Other possible considerations: gonorrhea, chlamydia, trich, bv, yeast, pid. Above considerations are based on history, physical exam and laboratory data. Differential diagnosis was discussed with patient. Disposition: Discharged home in good and unchanged condition (16:00). Condition: good and stable. CLINICAL IMPRESSION Acute mild bacterial vaginitis INSTRUCTIONS Warnings: GENERAL WARNINGS: Return or contact your physician immediately if your condition worsens or changes unexpectedly, if not improving as expected, or if other problems arise. Specifically return if problem worsens. Prescription Medications: Flagyl 500 mg: Take 1 tablet orally every 12 hours for 7 days. No refill. Substitution is permissible. Follow-up: Follow up with your doctor in about three days even if well. Call for an appointment. Summary of care provided to patient. Understanding of the discharge instructions verbalized by patient. (Electronically signed by Chaya Oneil A.R.N.P. 10/30/2016 18:37)
--- NOTE | 2016-10-30 16:00 | ED ORDER SUMMARY ---
..... Patient: IVAN CORTEZ OrderSheet [facility] VisitID: [id number] [place] [address] 26y, F Registration Date/Time: 10/30/2016 ORDER SHEET Weight: 58.9 kg (estimated) Allergies: No Known Drug Allergy GENERAL ORDERS: Pelvic Exam Setup (15:21 10/30/2016 HBivens A.R.N.P.) (15:22 Cristi R.N.) GC/Chlamydia (Cervix) (cervix) Urgent (15:30 10/30/2016 HBivens A.R.N.P.) (Ack 15:37 OHsierra) Wet Prep (Cervix) (cervix) Urgent (15:30 10/30/2016 HBivens A.R.N.P.) (Ack 15:37 Lexy) MEDICATION ORDERS: IV FLUIDS: ORDER SHEET NOTES: [Electronically signed by Rosa Oro R.N. (16:17 10/30/2016)] [Electronically signed by Chaya OneilR.N.PRobert (18:37 10/30/2016)] [Electronically locked/signed by Rsoa Oro R.N. (16:17 10/30/2016)]
--- NOTE | 2016-10-30 16:00 | ED NURSING NOTES ---
Clinical Report - Nurses [facility] [address] [place] [address] 10/30/2016 14:51 Patient: IVAN CORTEZ TRIAGE Triage time 15:Oct 30 2016. Acuity: LEVEL 4. Alert. No acute distress. --15:09 Rosa Oro R.N. 15:05 10/30/16. BP: 118/73. HR: 94. RR: 18. O2 saturation: 100%. Temp: 98.2 F. Pain level now 6/10. --15:09 Rosa Oro R.N. Chief Complaint: VAGINAL DISCHARGE. --16:17 Rosa Oro R.N. Weight: 58.9 kg estimated. Height/Length: 66 inches Estimated. BMI: 21. --15:04 Rosa Oro R.N. Medications Control Pills. --15:05 Rosa Oro R.N. Cephalexin Oral. --15:05 Rosa Oro R.N. Medication/allergy information source: the patient. --15:09 Rosa Oro R.N. Allergies No Known Drug Allergy. --15:05 Rosa Oro R.N. History Arrived by private vehicle. Historian: patient. Primary physician (Lynette). ( States she is on Cephalhexin and thinks she may have gotten a yeast infection or maybe an STD. Yeast and itching. Labia swollen. Recently TX for a UTI here on Wednesday. New partner a few weeks ago.). This started yesterday. 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 PAST MEDICAL HX: Last normal menstrual period- end of September. Denies current . SOCIAL HX: Light tobacco smoker (cigarette)- less than 1/2 a pack per day. Alcohol use. History of drug use: marijuana. NUTRITIONAL RISK ASSESSMENT: The nutritional risk assessment revealed no deficiencies. FUNCTIONAL ASSESSMENT: Functional assessment: no impairments noted. LEARNING NEEDS ASSESSMENT: The learning needs assessment revealed no barriers. SKIN INTEGRITY ASSESSMENT: Skin integrity risk assessment completed. No skin integrity risk identified. --15:09 Rsoa Oro R.N. PROBLEMS: Cystitis. Syncope. Carpal Tunnel Syndrome. Hep c. Substance Abuse. Neck Injury. --15:05 Rosa Oro R.N. Interventions ID band on patient. To room. --15:09 Rosa Oro R.N. PHYSICAL ASSESSMENT Ambulatory to room. GENERAL / NEURO / PSYCH: Alert. Oriented X 4. Appears in no acute distress. RESPIRATORY: Respirations not labored. CVS: Capillary refill less than 2 seconds. SKIN: Skin is warm and dry. --16:13 Rosa Oro R.N. GI / : ( no visualized by RN, MOTOR TESTER only during pelvic exam). --16:14 Rosa Oro R.N. NURSING PROGRESS NOTES PELVIC EXAM: Pelvic exam performed by MOTOR TESTER. Assisted by one nurse. Preparation: pelvic tray. Procedure: speculum exam. Moderate amount of vaginal discharge noted. Specimens collected and sent to lab: GC, chlamydia and wet prep. Status post-procedure: she was stable. Total time of assist / procedure: 15 minutes. --15:34 Rosa Oro R.N. ( discussed probiotics and or panamanian yogurt, minimal sugar). --16:15 Rosa Oro R.N. DISPOSITION / DISCHARGE Departure time: 16:16 Oct 30 2016. --16:16 Rosa Oro R.N. Condition at departure: improved and stable. No learning barriers present. Patient verbalized understanding. Written instructions provided in Thai. The patient was discharged by the nurse practitioner. She was discharged home and accompanied by family. She left the Emergency Department ambulatory and via private vehicle. Family member driving. --16:16 Rosa Oro R.N. Locked/Released at 10/30/2016 16:17 by Rosa Oro R.N.
--- NOTE | 2016-10-30 18:37 | ED MAR SUMMARY ---
..... Medication Administration Record [facility] [address] [place], [place] [id number] Patient: IVAN CORTEZ Visit ID: [id number] 26y, F Weight: 58.9 kg Height/Length: 66 in BMI: 21 ALLERGIES: No Known Drug Allergy
--- NOTE | 2016-10-30 18:37 | ED MED RECONCILIATION SUMMARY ---
Patient: IVAN CORTEZ Medication Reconciliation Report [facility] VisitID: [id number] [address] [place] [address] 26y, F Registration Date/Time: 10/30/2016 Weight: 58.9 kg Height/Length: 66 in. BMI: 21.0 ALLERGIES: No Known Drug Allergy The patient's Home Medications are listed below: THE FOLLOWING MEDICATIONS NEED TO BE RECONCILED: Control Pills Cephalexin Oral The source(s) of the original Home Medication information: patient The following Medications were given to the patient in the Emergency Department: None. The following Medications were prescribed to the patient: Flagyl 500 mg: Take 1 tablet orally every 12 hours for 7 days. No refill. Substitution is permissible. -- Chaya Oneil A.R.N.P.
--- NOTE | 2016-10-30 18:37 | ED DISCHARGE INSTRUCTIONS ---
Patient: IVAN CORTEZ General Instructions [facility] VisitID: [id number] [place] [address] 26y, F Registration Date/Time: 10/30/2016 Acute mild bacterial vaginitis INSTRUCTIONS Warnings: GENERAL WARNINGS: Return or contact your physician immediately if your condition worsens or changes unexpectedly, if not improving as expected, or if other problems arise. Specifically return if problem worsens. Prescription Medications: Flagyl 500 mg: Take 1 tablet orally every 12 hours for 7 days. No refill. Substitution is permissible. Follow-up: Follow up with your doctor in about three days even if well. Call for an appointment. Summary of care provided to patient. Understanding of the discharge instructions verbalized by patient. ADDITIONAL INFORMATION Bacterial Vaginosis You have a bacterial infection of the vagina called bacterial vaginosis (BV). It may also be called gardnerella or non-specific vaginitis. BV occurs when the "bad" bacteria outnumber the "good" bacteria that are normally present in the vagina. Symptoms include foul-smelling vaginal discharge (most noticeable after vaginal intercourse). There may also be burning with urination. The burning is caused as the urine passes over the inflamed outer vaginal area. The cause of bacterial vaginosis is not certain. However, your risk is higher if you recently began a new sexual relationship, or have had many sex partners in the past. Your risk is also higher if you douche often. While bacterial vaginosis most often occurs only in sexually active women, this is not a true sexually transmitted disease. You did not get this from your partner. You cannot give it to your partner. The infection may be related to temporary changes in the pH of vaginal fluids after being exposed to semen. Home Care: Keep the genital area clean and free of discharge. Do this by wearing an absorbent sanitary pad and changing it often. Shower daily. When you shower, clean the outer vaginal area with plain soap and water. Do not douche during treatment unless advised to do so by your doctor. Routine douching after treatment is no longer recommended to clean the vagina. It raises your risk of vaginal infection and pelvic inflammatory disease. Avoid having sex until you have finished all antibiotic medicine and all symptoms have gone away. Wear cotton underwear or cotton-lined panty hose. Dont wear pants that are too tight. Limiting the number of sex partners you have lowers your risk of this and other vaginal infections, STDs, and HIV. Take all medicine as directed until it is gone, even if you are feeling better. If you dont do this, symptoms might return. Follow Up with your doctor if symptoms dont go away after the medicine is finished. Get Prompt Medical Attention if any of the following occur: Fever of 100.4F (38C) or higher, or as directed by your healthcare provider Lower abdominal pain Rash or joint pain Painful sores around the outer vaginal area or on your partners penis Metronidazole Oral tablet What is this medicine? METRONIDAZOLE (me troe NI da zole) is an antiinfective. It is used to treat certain kinds of bacterial and protozoal infections. It will not work for colds, flu, or other viral infections. How should I use this medicine? Take this medicine by mouth with a full glass of water. Follow the directions on the prescription label. Take your medicine at regular intervals. Do not take your medicine more often than directed. Take all of your medicine as directed even if you think you are better. Do not skip doses or stop your medicine early. Talk to your straight pin making machine operator regarding the use of this medicine in children. Special care may be needed. What side effects may I notice from receiving this medicine? Side effects that you should report to your doctor or health ambulatory care nurse as soon as possible: allergic reactions like skin rash or hives, swelling of the face, lips, or tongue confusion, clumsiness difficulty speaking discolored or sore mouth dizziness fever, infection numbness, tingling, pain or weakness in the hands or feet trouble passing urine or change in the amount of urine redness, blistering, peeling or loosening of the skin, including inside the mouth seizures unusually weak or tired vaginal irritation, dryness, or discharge Side effects that usually do not require medical attention (report to your doctor or health ambulatory care nurse if they continue or are bothersome): diarrhea headache irritability metallic taste nausea stomach pain or cramps trouble sleeping What may interact with this medicine? Do not take this medicine with any of the following medications: alcohol or any product that contains alcohol amprenavir oral solution cisapride disulfiram dofetilide dronedarone paclitaxel injection pimozide ritonavir oral solution sertraline oral solution sulfamethoxazole-trimethoprim injection thioridazine ziprasidone This medicine may also interact with the following medications: cimetidine lithium other medicines that prolong the QT interval (cause an abnormal heart rhythm) phenobarbital phenytoin warfarin What if I miss a dose? If you miss a dose, take it as soon as you can. If it is almost time for your next dose, take only that dose. Do not take double or extra doses. Where should I keep my medicine? Keep out of the reach of children. Store at room temperature below 25 degrees C (77 degrees F). Protect from light. Keep container tightly closed. Throw away any unused medicine after the expiration date. What should I tell my health care provider before I take this medicine? They need to know if you have any of these conditions: anemia or other blood disorders disease of the nervous system fungal or yeast infection if you drink alcohol containing drinks liver disease seizures an unusual or allergic reaction to metronidazole, or other medicines, foods, dyes, or preservatives or trying to get breast-feeding What should I watch for while using this medicine? Tell your doctor or health ambulatory care nurse if your symptoms do not improve or if they get worse. You may get drowsy or dizzy. Do not drive, use machinery, or do anything that needs mental alertness until you know how this medicine affects you. Do not stand or sit up quickly, especially if you are an older patient. This reduces the risk of dizzy or fainting spells. Avoid alcoholic drinks while you are taking this medicine and for three days afterward. Alcohol may make you feel dizzy, sick, or flushed. If you are being treated for a sexually transmitted disease, avoid sexual contact until you have finished your treatment. Your sexual partner may also need treatment. You have been given the following additional information: Vaginitis, Bacterial Metronidazole Oral tablet (Electronically signed by Chaya Oneil A.R.N.P. 10/30/2016 18:37)
--- NOTE | 2016-10-30 18:37 | ED DISCHARGE INSTRUCTIONS ---
Patient: IVAN CORTEZ General Instructions [facility] VisitID: [id number] [place] [address] 26y, F Registration Date/Time: 10/30/2016 Acute mild bacterial vaginitis INSTRUCTIONS Warnings: GENERAL WARNINGS: Return or contact your physician immediately if your condition worsens or changes unexpectedly, if not improving as expected, or if other problems arise. Specifically return if problem worsens. Prescription Medications: Flagyl 500 mg: Take 1 tablet orally every 12 hours for 7 days. No refill. Substitution is permissible. Follow-up: Follow up with your doctor in about three days even if well. Call for an appointment. Summary of care provided to patient. Understanding of the discharge instructions verbalized by patient. ADDITIONAL INFORMATION Bacterial Vaginosis You have a bacterial infection of the vagina called bacterial vaginosis (BV). It may also be called gardnerella or non-specific vaginitis. BV occurs when the "bad" bacteria outnumber the "good" bacteria that are normally present in the vagina. Symptoms include foul-smelling vaginal discharge (most noticeable after vaginal intercourse). There may also be burning with urination. The burning is caused as the urine passes over the inflamed outer vaginal area. The cause of bacterial vaginosis is not certain. However, your risk is higher if you recently began a new sexual relationship, or have had many sex partners in the past. Your risk is also higher if you douche often. While bacterial vaginosis most often occurs only in sexually active women, this is not a true sexually transmitted disease. You did not get this from your partner. You cannot give it to your partner. The infection may be related to temporary changes in the pH of vaginal fluids after being exposed to semen. Home Care: Keep the genital area clean and free of discharge. Do this by wearing an absorbent sanitary pad and changing it often. Shower daily. When you shower, clean the outer vaginal area with plain soap and water. Do not douche during treatment unless advised to do so by your doctor. Routine douching after treatment is no longer recommended to clean the vagina. It raises your risk of vaginal infection and pelvic inflammatory disease. Avoid having sex until you have finished all antibiotic medicine and all symptoms have gone away. Wear cotton underwear or cotton-lined panty hose. Dont wear pants that are too tight. Limiting the number of sex partners you have lowers your risk of this and other vaginal infections, STDs, and HIV. Take all medicine as directed until it is gone, even if you are feeling better. If you dont do this, symptoms might return. Follow Up with your doctor if symptoms dont go away after the medicine is finished. Get Prompt Medical Attention if any of the following occur: Fever of 100.4F (38C) or higher, or as directed by your healthcare provider Lower abdominal pain Rash or joint pain Painful sores around the outer vaginal area or on your partners penis Metronidazole Oral tablet What is this medicine? METRONIDAZOLE (me troe NI da zole) is an antiinfective. It is used to treat certain kinds of bacterial and protozoal infections. It will not work for colds, flu, or other viral infections. How should I use this medicine? Take this medicine by mouth with a full glass of water. Follow the directions on the prescription label. Take your medicine at regular intervals. Do not take your medicine more often than directed. Take all of your medicine as directed even if you think you are better. Do not skip doses or stop your medicine early. Talk to your bran mixer regarding the use of this medicine in children. Special care may be needed. What side effects may I notice from receiving this medicine? Side effects that you should report to your doctor or health ocular care technologist as soon as possible: allergic reactions like skin rash or hives, swelling of the face, lips, or tongue confusion, clumsiness difficulty speaking discolored or sore mouth dizziness fever, infection numbness, tingling, pain or weakness in the hands or feet trouble passing urine or change in the amount of urine redness, blistering, peeling or loosening of the skin, including inside the mouth seizures unusually weak or tired vaginal irritation, dryness, or discharge Side effects that usually do not require medical attention (report to your doctor or health ocular care technologist if they continue or are bothersome): diarrhea headache irritability metallic taste nausea stomach pain or cramps trouble sleeping What may interact with this medicine? Do not take this medicine with any of the following medications: alcohol or any product that contains alcohol amprenavir oral solution cisapride disulfiram dofetilide dronedarone paclitaxel injection pimozide ritonavir oral solution sertraline oral solution sulfamethoxazole-trimethoprim injection thioridazine ziprasidone This medicine may also interact with the following medications: cimetidine lithium other medicines that prolong the QT interval (cause an abnormal heart rhythm) phenobarbital phenytoin warfarin What if I miss a dose? If you miss a dose, take it as soon as you can. If it is almost time for your next dose, take only that dose. Do not take double or extra doses. Where should I keep my medicine? Keep out of the reach of children. Store at room temperature below 25 degrees C (77 degrees F). Protect from light. Keep container tightly closed. Throw away any unused medicine after the expiration date. What should I tell my health care provider before I take this medicine? They need to know if you have any of these conditions: anemia or other blood disorders disease of the nervous system fungal or yeast infection if you drink alcohol containing drinks liver disease seizures an unusual or allergic reaction to metronidazole, or other medicines, foods, dyes, or preservatives or trying to get breast-feeding What should I watch for while using this medicine? Tell your doctor or health ocular care technologist if your symptoms do not improve or if they get worse. You may get drowsy or dizzy. Do not drive, use machinery, or do anything that needs mental alertness until you know how this medicine affects you. Do not stand or sit up quickly, especially if you are an older patient. This reduces the risk of dizzy or fainting spells. Avoid alcoholic drinks while you are taking this medicine and for three days afterward. Alcohol may make you feel dizzy, sick, or flushed. If you are being treated for a sexually transmitted disease, avoid sexual contact until you have finished your treatment. Your sexual partner may also need treatment. You have been given the following additional information: Vaginitis, Bacterial Metronidazole Oral tablet (Electronically signed by Chaya Oneil A.R.N.P. 10/30/2016 18:37)
--- NOTE | 2016-10-30 18:37 | ED MED RECONCILIATION SUMMARY ---
Patient: IVAN CORTEZ Medication Reconciliation Report [facility] VisitID: [id number] [address] [place] [address] 26y, F Registration Date/Time: 10/30/2016 Weight: 58.9 kg Height/Length: 66 in. BMI: 21.0 ALLERGIES: No Known Drug Allergy The patient's Home Medications are listed below: THE FOLLOWING MEDICATIONS NEED TO BE RECONCILED: Control Pills Cephalexin Oral The source(s) of the original Home Medication information: patient The following Medications were given to the patient in the Emergency Department: None. The following Medications were prescribed to the patient: Flagyl 500 mg: Take 1 tablet orally every 12 hours for 7 days. No refill. Substitution is permissible. -- Chaya Oneil A.R.N.P.
--- NOTE | 2016-10-30 18:37 | ED MAR SUMMARY ---
..... Medication Administration Record [facility] [address] [place], [place] [id number] Patient: IVAN CORTEZ Visit ID: [id number] 26y, F Weight: 58.9 kg Height/Length: 66 in BMI: 21 ALLERGIES: No Known Drug Allergy
== END 2016-10-30 16:10 | disposition home or self-care (01) ==
LOC: ED SRH 14:50
DX: A56.02 Chlamydial vulvovaginitis (principal); F17.210 Nicotine dependence, cigarettes, uncomplicated
CPT/HCPCS: 90195; 91227; 91228